=== PATIENT | female | born 1990 | race Caucasian/White ===

== ENCOUNTER 2016-09-19 22:07 | Emergency (ER) | payer BC ==
[~2016-09-19 22:07] MED LIST: CLARINEX5 MG PO; DEPO-ESTRADIO5 MG/ML; DEPO-PROVER150 MG/M1; DIFLUCAN PO; FERROUS SULFATE PO; FLAGYL PO; FLONASE16 GM; ILOTYCIN1 GM OD; IRON1 TA1; LEVAQUIN PO; ULTRAM PO; VICODIN 5/500 T1 TAB PO; ZYRTEC PO
[2016-09-19] MEDS ORDERED: GLUCOPHAGE500 MG PO (22:20)
[2016-09-19] MEDS ORDERED: VITAMIN B122500 MCG PO (22:20)
[2016-09-19] MEDS ORDERED: WELLBUTRIN PO (22:21)
[2016-09-19] MEDS ORDERED: MULTIPLE VITAM1 EAC1 PO (22:21)
[2016-09-19 23:48] LABS: BASOPHIL# 0.2 X10e3 (0-0.3); BASOPHIL% 1.2 % (0-2.5); DIFF IND NO; EOSINOPHIL# 0.3 X10e3 (0-0.7); EOSINOPHIL% 1.6 % (0.0-7.0); HEMATOCRIT 39.2 % (35.0-45.0); LYMPHOCYTE# 5.7 X10e3 (1.0-3.5); LYMPHOCYTE% 31.6 % (17.0-45.0); MEAN CELL VOLUME 80.3 FL (83-96); MEAN CORPUSCULAR HEMOGLOBIN 26.7 PG (28-34); MEAN CORPUSCULAR HGB CONC 33.2 g/dL (30-36); MEAN PLATELET VOLUME 7.2 FL (6.5-11.5); MONOCYTE# 0.7 X10e3 (0-1.0); MONOCYTE% 3.9 % (3.0-12.0); NEUTROPHIL# 11.1 X10e3 (1.5-7.1); NEUTROPHIL% 61.7 % (40-75); PLATELET COUNT 415 X10e3 (140-420); RED BLOOD COUNT 4.88 X10e (3.90-5.30); RED CELL DISTRIBUTION WIDTH 17.2 % (11.0-15.5)
[2016-09-19 23:57] LABS: URINE SOURCE CLEAN CATCH
[2016-09-19 23:59] LABS: URINE APPEARANCE CLEAR; URINE BILIRUBIN NEG (NEG); URINE BLOOD NEG (NEG); URINE COLOR YELLOW; URINE GLUCOSE 300 MG/DL (NORM); URINE KETONE TRACE (NEG); URINE LEUKOCYTE ESTERASE NEG (NEG); URINE NITRATE NEG (NEG); URINE PH 5.5 (5-8); URINE PROTEIN NEG (NEG); URINE SPECIFIC GRAVITY 1.025 (1.003-1.035); URINE UROBILINOGEN 0.2 MG/DL (NORM)
[2016-09-20 00:02] LABS: MICRO INDICATED? NO
[2016-09-20 00:05] LABS: CALCIUM SERUM 9.5 mg/dL (8.4-10.2); CREATININE SERUM 0.5 mg/dL (0.6-1.4); GLOM FILT RATE Estimated 134.5 mL/min (>60); POTASSIUM 3.7 mmol/L (3.5-5.1)
== END 2016-09-20 00:57 | disposition home or self-care (01) ==
LOC: SED 22:07
PROVIDERS: Emergency Medicine
DX: D72.829 Elevated white blood cell count, unspecified (principal); R42 Dizziness and giddiness; E11.9 Type 2 diabetes mellitus without complications
CPT/HCPCS: 36415; 80048; 81003; 84703; 85025; 87086; 99284